=== PATIENT | female | born 1950 | race Caucasian/White ===

== ENCOUNTER → 2017-04-03 | Outpatient (CLI) | payer MEDICARE ==
[~2017-04-03] MED LIST: ADVIL200 M1 PO; ALLEGRA30 MG PO; ALTACE 5MG CAPSU5 MG PO; ASPIRIN 325MG325 MG PO; ASPIRIN EC81 MG PO; BENADRYL25 M1 PO; CELEBREX 100MG100 MG PO; CELEBREX 200MG200 MG PO; CYMBALTA20 MG PO; FLAGYL 500MG.500 MG PO; FLONASE 50 MCG16 GM; HCTZ/TRIAMTEREN1 CAP PO; IBUPROFEN800 MG PO; KEFLEX 500MG.500 MG PO; MAXZIDE1 TAB PO; MEDROL 4MG. DOSE4 MG PO; NEOMYCIN 500MG500 MG PO; NEURONTIN 100100 MG PO; RAMIPRIL5 MG PO; SIMVASTATIN20 MG PO; SINGULAIR10 MG PO; TYLENOL ES500 MG PO; VESICARE5 MG PO; VICODIN 5/500 T1 TAB PO; VOLTAREN GEL1% TP; XYZAL5 MG PO; ZESTRIL5 MG OR
[2017-04-03 17:40] LABS: HEMOGLOBIN 14.1 g/dL (12.2-16.2); LYMPH # 2.7 K/mm3 (0.7-4.5); LYMPH % 26.8 % (10-50.0)
[2017-04-03 18:19] LABS: BUN 16 mg/dL (7-18); GFR (ESTIMATED) 62 ML/MIN (59-)
== END ==
LOC: LAB 17:14
PROVIDERS: Surgery
DX: Z85.038 Personal history of other malignant neoplasm of large intestine (principal); Z01.818 Encounter for other preprocedural examination; Z12.11 Encounter for screening for malignant neoplasm of colon

== ENCOUNTER → 2017-04-04 | Outpatient (CLI) | payer MEDICARE ==
--- NOTE | 2017-04-04 16:06 | RADIOLOGY REPORT PS360 ---
CHEST(2 VIEWS-NOT PORTABLE) HISTORY: Shortness of air, cough, bronchitis BRONCHITIS ORDERING PHYSICIAN: Ginna Mae APRN PATIENT AGE: 67 years COMPARISON: 11/17/2016 FINDINGS: The cardiomediastinal silhouette and pulmonary vascularity are within normal limits. Chronic changes are present in the lower lobes. There is hyperinflation with attenuation of the vertebral pulmonary vessels. Bilateral breast implants are present with resultant attenuation of the lower chest on both sides. No lobar consolidation or collapse.. No acute bony abnormalities. IMPRESSION: No acute finding. COPD/obstructive chronic bronchitis with chronic change
== END ==
LOC: RAD 15:35
DX: J40 Bronchitis, not specified as acute or chronic (principal)

== ENCOUNTER 2017-04-06 06:54 | Day surgery (SDC) | payer MEDICARE ==
--- NOTE | 2017-04-06 08:33 | Operative Note ---
Surgeon/Diagnoses Surgeon/[employer](s) Date of procedure: 04/06/17 Surgeon: MD Kayla Randall Diagnoses Pre-op diagnosis: History of colon cancer Post-op diagnosis History of colon cancer Colon polyps Diverticulosis Procedure Procedure Procedure: Colonoscopy with polypectomy by means of cold biopsy forceps Indications: NICOLASA TARANGO is a 67 year-old Female with a history of colon cancer leading to RIGHT colectomy and 2011. No significant abnormalities have been noted on follow-up colonoscopies. She is currently without symptoms. Her CEA was somewhat elevated at 4.7. Findings: Bowel preparation relatively fair Fairly significant scattered diverticulosis Significant sigmoid tortuosity Polyp at 15 cm 8 mm sessile polyp at 10 cm and adjacent polyp Anal canal polyp versus small hemorrhoidal cushion Procedure Description: After informed consent was obtained, the patient was taken to the endoscopy suite. IV sedation ensued after she was transferred to the LEFT lateral decubitus position. Digital rectal exam revealed a small polyp versus hemorrhoidal cushion. The colonoscope was placed in position. The entire colon was evaluated. Bowel preparation was relatively fair with irrigation and suctioning used to improve visualization. Fairly significant scattered diverticulosis was encountered. Fairly significant tortuosity of the sigmoid colon and moderate colonic spasticity were also noted. Some mild inflammatory response at the anastomosis was noted and biopsies were obtained. A polyp at 15 cm was excised with cold biopsy forceps. An 8 mm sessile polyp at 10 cm and an adjacent polyps were excised cold biopsy forceps. Multiple biopsies were obtained of the small anal canal polyp versus hemorrhoidal cushion. The colonoscope was carefully removed and the patient was transferred to recovery. EBL (ml): 1 Anesthesia: IV sedation with 9 mg of Versed and 150 g of fentanyl Complications: No immediate Specimens: Biopsy of anastomosis Polyp at 15 cm 8 mm sessile polyp at 10 cm and adjacent polyp Anal canal polyp versus hemorrhoidal cushion Disposition Disposition: Stable to recovery from where she will be discharged home. She will follow-up in one week. Repeat colonoscopy is pending pathology but will likely be around 2 years secondary to history of colon cancer and nature of polyps, as well as, sigmoid tortuosity/colonic spasticity. In addition, very minimum is a consideration secondary to sigmoid tortuosity in history of colon cancer/ slightly elevated CEA level. Elevated CEA level also be evaluated initially by way of CT scan of chest, abdomen, and pelvis. at [id number]
[2017-04-06 12:04] VITALS: BP 124/73
== END 2017-04-06 09:30 | disposition home or self-care (01) ==
LOC: SDC 06:54
PROVIDERS: Surgery
PROC: 0DBE8ZX Excision of Large Intestine, Via Natural or Artificial Opening Endoscopic, Diagnostic (ICD-10-PCS; principal; 2017-04-06 07:30)
DX: Z85.038 Personal history of other malignant neoplasm of large intestine (principal); K57.30 Diverticulosis of large intestine without perforation or abscess without bleeding; K62.0 Anal polyp; K63.5 Polyp of colon

== ENCOUNTER → 2017-04-12 | Outpatient (CLI) | payer MEDICARE ==
[2017-04-12 14:37] LABS: GFR (ESTIMATED) 83 ML/MIN (59-)
== END ==
LOC: LAB 10:41
PROVIDERS: Surgery
DX: Z85.038 Personal history of other malignant neoplasm of large intestine (principal); R97.0 Elevated carcinoembryonic antigen [CEA]

== ENCOUNTER → 2017-04-14 | Outpatient (CLI) | payer MEDICARE ==
--- NOTE | 2017-04-14 14:33 | RADIOLOGY REPORT PS360 ---
BARIUM ENEMA HISTORY: HX COLON CA, ELEVATED CEA ORDERING PHYSICIAN: RAE RANDALL MD PATIENT AGE: 67 years COMPARISON: None FINDINGS: Computing Machine Operator exam shows suture line in the right mid abdominal region. There are bilateral hip prosthesis and there are postsurgical changes of the lumbar spine. There is been a prior hemicolectomy on the right. The colon is visualized from rectum to the enterocolic anastomosis in the right mid abdominal region. There was limited distention of the colon due to reflux of contrast into the ileoanal anastomosis. There is extensive diverticulosis of the descending and sigmoid colon. No annular constricting lesions or fixed polypoid filling defects are evident. Contrast was refluxed into the distal ileum. IMPRESSION: 1. Prior right hemicolectomy with patent enterocolic anastomosis. 2. Extensive diverticulosis of the descending and sigmoid colon. 3. No evidence of annular constricting lesion or fixed polypoid filling defect
== END ==
LOC: RAD 09:35
DX: R97.0 Elevated carcinoembryonic antigen [CEA] (principal); Z85.038 Personal history of other malignant neoplasm of large intestine